=== PATIENT | female | born 1995 | race Hispanic/Latino ===

== ENCOUNTER 2017-08-03 19:43 | Emergency (ER) | payer OTHER ==
[2017-08-03] MEDS ORDERED: Sodium Chloride 0.9% 1,000 ML IV STA (21:38)
[2017-08-03] MEDS ORDERED: Famotidine 20mg/50ml 20 MG/50 ML BAG IVPB STA (21:51)
[2017-08-03] MEDS ORDERED: Famotidine 20mg/50ml 20 MG/50 ML BAG IVPB ONE (22:04)
[2017-08-03 22:30] LABS: SQUAMOUS EPITHIAL 12 /hpf (0-5); URINE BACTERIA RARE (<OCC); URINE BILIRUBIN NEGATIVE (NEGATIVE); URINE BLOOD NEGATIVE (NEGATIVE); URINE CLARITY CLOUDY (Clear); URINE COLOR AMBER (YELLOW); URINE GLUCOSE (UA) NEG (Normal); URINE LEUKOCYTE ESTERASE NEG Leu/uL (Negative); URINE PROTEIN 100 mg/dL (NEGATIVE); URINE UROBILINOGEN 0.2-1.0 mg/dL (0.2-1.0)
[2017-08-03 22:36] LABS: BASO % 0.2 % (0.0-2.0); EOS % 0.1 % (0.0-4.0); LYMPH % 16.3 % (20.0-40.0); MEAN CELL VOLUME 90.2 fl (81.0-99.0); MEAN CORPUSCULAR HEMOGLOBIN 30.9 pg (27.0-31.0); MEAN CORPUSCULAR HGB CONC 34.2 g/dL (33.0-37.0); MEAN PLATELET VOLUME 8.4 fl (7.2-11.7); MONO # 0.4 K/uL (0.0-0.8); MONO % 5.9 % (0.0-10.0); NEUT # 4.8 K/uL (1.8-7.0); NEUT % 77.5 % (50.0-75.0); NRBC % 0.1 % (0.0-0.0); RBC 4.52 Mil/uL (3.80-5.20); RED CELL DISTRIBUTION WIDTH 13.2 % (11.5-14.5); WHITE BLOOD COUNT 6.2 K/uL (4.8-10.8)
[2017-08-03 22:42] LABS: ALB/GLOB RATIO 1.2 (1.0-2.1); ALBUMIN 3.8 g/dL (3.5-5.0); ALT/SGPT 24 U/L (9-52); AST/SGOT 25 U/L (14-36); BLOOD UREA NITROGEN 7 mg/dl (7-17); GFR AFRICAN-AMERICAN > 60; GFR NON-AFRICAN AMERICAN > 60; LIPASE 41 U/L (23-300)
[2017-08-03 22:46] LABS: VENOUS BLOOD GAS BASE EXCESS 0.1 mmol/L (0.0-2.0); VENOUS BLOOD GAS PCO2 39 mmHg (40-60); VENOUS BLOOD GAS PO2 30 mm/Hg (30-55); VENOUS BLOOD PH 7.41 (7.32-7.43)
[2017-08-03] MEDS ORDERED: Potassium Chloride 20 mEq/15 ml LIQ UD PO ONE (22:50)
[2017-08-03] MEDS ORDERED: Potassium Chloride 20 mEq 100 ML ONE (23:58)
[2017-08-04] MEDS: Potassium Chloride 20 mEq 100 ML IVPB SCH ×2 (00:01→02:06)
--- NOTE | 2017-08-04 00:14 | ED PDOC ---
HPI: Abdomen Time Seen by Provider: 08/03/17 21:27 Chief Complaint (Nursing): Fever Chief Complaint (Provider): Fever, Abdominal Pain History Per: Patient History/Exam Limitations: no limitations Onset/Duration Of Symptoms: Days (x3) Outside of [place] travel?: No Current Symptoms Are (Timing): Still Present Additional Complaint(s): 22 y/o female with no significant pmhx who presents to the ED for evaluation of fever and multiple episodes of watery diarrhea x3 days. Patient says she recently moved here from [place] and went out for food and drinks Thursday night, and states her symptoms began on Thursday morning. Patient reports intermittent crampy abdominal pain onset today associated with nausea, but denies vomiting, recent travel, or sick contacts. Patient reports taking Immodium for her symptoms. She states she went to today and was given Cipro and Bentyl, but her symptoms continued prompting her to present to the ED for evaluation. Past Medical History Reviewed: Historical Data, Nursing Documentation, Vital Signs Vital Signs: Last Vital Signs Temp 102.1 F H 08/03/17 21:55 Pulse 112 H 08/03/17 21:00 Resp 16 08/03/17 21:00 BP 114/73 08/03/17 21:00 Pulse Ox 97 08/03/17 21:00 - Medical History PMH: No Chronic Diseases - Surgical History Surgical History: No Surg Hx - Family History Family History: States: Unknown Family Hx - Social History Current smoker - smoking cessation education provided: No Alcohol: None Drugs: Denies - Allergies Allergies/Adverse Reactions: Allergies Allergy/AdvReac Type Severity Reaction Status Date / Time No Known Allergies Allergy Verified 08/03/17 20:57 Review of Systems ROS Statement: Except As Marked, All Systems Reviewed And Found Negative Constitutional: Positive for: Fever Gastrointestinal: Positive for: Nausea, Abdominal Pain, Diarrhea. Negative for : Vomiting Physical Exam - Reviewed Nursing Documentation Reviewed: Yes Vital Signs Reviewed: Yes - Physical Exam Comments: GENERAL APPEARANCE: Patient is awake, alert, oriented x 3, in no acute distress. SKIN: Warm, dry; (-) cyanosis. EYES: (-) conjunctival pallor, (-) scleral icterus. ENMT: Mucous membranes dry. NECK: (-) tenderness, (-) stiffness, (-) lymphadenopathy. CHEST AND RESPIRATORY: (-) rales, (-) rhonchi, (-) wheezes; breath sounds equal bilaterally. HEART AND CARDIOVASCULAR: (-) irregularity; (-) murmur, (-) gallop. ABDOMEN AND GI: (-) distention. Bowel sounds active; (-) tenderness. (-) guarding, (-) rebound, (-) palpable masses, (-) CVA tenderness. EXTREMITIES: (-) deformity, (-) edema, (+) distal pulses. NEURO AND PSYCH: Mental status as above; (-) focal findings. - Laboratory Results Result Diagrams: 08/03/17 22:07 08/03/17 22:07 - ECG O2 Sat by Pulse Oximetry: 97 (RA) Disposition - Disposition
[2017-08-04] MEDS ORDERED: Sodium Chloride 0.9% 1,000 ML IV STA (00:20)
--- NOTE | 2017-08-04 00:26 | ED PDOC ---
HPI: Abdomen Time Seen by Provider: 08/03/17 21:27 Chief Complaint (Nursing): Fever Chief Complaint (Provider): Fever, Abdominal Pain History Per: Patient History/Exam Limitations: no limitations Onset/Duration Of Symptoms: Days (x3) Current Symptoms Are (Timing): Still Present Additional Complaint(s): 22 y/o female with no significant pmhx who presents to the ED for evaluation of fever and multiple episodes of watery diarrhea x3 days. Patient says she recently moved here from [place] and went out for food and drinks Thursday night, and states her symptoms began on Thursday morning. Patient reports intermittent crampy abdominal pain onset today associated with nausea, but denies vomiting, recent travel outside of , or sick contacts. Patient reports taking Immodium for her symptoms. She states she went to today and was given Cipro and Bentyl , but her symptoms continued prompting her to present to the ED for evaluation. Past Medical History Reviewed: Historical Data, Nursing Documentation, Vital Signs Vital Signs: Last Vital Signs Temp 97.6 F 08/04/17 01:57 Pulse 64 08/04/17 01:57 Resp 18 08/04/17 01:57 BP 112/62 08/04/17 01:57 Pulse Ox 100 08/04/17 01:57 - Medical History PMH: No Chronic Diseases - Surgical History Surgical History: No Surg Hx - Family History Family History: States: Unknown Family Hx - Social History Current smoker - smoking cessation education provided: No Alcohol: None Drugs: Denies - Home Medications Home Medications: Ambulatory Orders Medication Instructions Recorded Ondansetron ODT [Zofran ODT] 4 mg PO DAILY PRN #20 odt 08/04/17 - Allergies Allergies/Adverse Reactions: Allergies Allergy/AdvReac Type Severity Reaction Status Date / Time No Known Allergies Allergy Verified 08/03/17 20:57 Review of Systems ROS Statement: Except As Marked, All Systems Reviewed And Found Negative Constitutional: Positive for: Fever Gastrointestinal: Positive for: Nausea, Abdominal Pain, Diarrhea. Negative for : Vomiting Physical Exam - Reviewed Nursing Documentation Reviewed: Yes Vital Signs Reviewed: Yes - Physical Exam Comments: GENERAL APPEARANCE: Patient is awake, alert, oriented x 3, in no acute distress. SKIN: Warm, dry; (-) cyanosis. EYES: (-) conjunctival pallor, (-) scleral icterus. ENMT: Mucous membranes dry. NECK: (-) tenderness, (-) stiffness, (-) signs of meningismus, (-) lymphadenopathy. CHEST AND RESPIRATORY: (-) rales, (-) rhonchi, (-) wheezes; breath sounds equal bilaterally. HEART AND CARDIOVASCULAR: (-) irregularity; (-) murmur, (-) gallop. ABDOMEN AND GI: (-) distention. Bowel sounds active; (+) mild diffuse abdominal tenderness, (-) guarding, (-) rebound, (-) palpable masses, (-) CVA tenderness. EXTREMITIES: (-) deformity, (-) edema, (+) distal pulses. NEURO AND PSYCH: Mental status as above; (-) focal findings. - Laboratory Results Result Diagrams: 08/03/17 22:07 08/03/17 22:07 - ECG O2 Sat by Pulse Oximetry: 97 (RA) Pulse Ox Interpretation: Normal Medical Decision Making Medical Decision Making: Impression: Gastroenteritis, consider colitis --VBG shock panel --EKG --CMP --Lipase --ED urine --CBC --CXR --Potassium chloride --1LNS --Pepcid 20mg IVP --Toradol 30mg IVP --Zofran 4mg IVP --Tylenol 650mg PO --Blood culture --Stool culture --IV insertion --Urinalysis --Reevaluation Labs reviewed. CBC WNL, Lactic acid WNL, HCG negative, Potassium 3.1. UA shows positive ketones. On reevaluation, patient reports feeling better. Patient is a febrile and has no nausea or pain. Patient had 1 episode of watery diarrhea in ER and stool sample was sent for culture and C diff. Repeat abdominal exam: (+) soft, (-) tenderness, (-) guarding. Second NS bolus ordered. Given KCl 40 meq PO and IV 2 riders ordered. EKG : NSR at 67 bpm, (-) acute ST changes, as read by FRAN. VS T 97.6 P 64 BP 112/62 O2sat 100%RA. Patient unable to tolerate IV KCl, given another dose of KCl PO. Patient states that she feels much better and feels comfortable going home. Dx of dehydration, hypokalemia and gastroenteritis d/w the patient, advised to increase intake of fluids - water, gatorade, BRAT diet. Advised to follow up with primary care physician in 1-2 days without fail. Advised to take medication as prescribed and to continue taking cipro and bentyl as prescribed from the urgent care. Return to the emergency room at any time for any new or worsening symptoms. Patient states she fully agrees with and understands discharge instructions. States that she agrees with the plan and disposition. Verbalized and repeated discharge instructions and plan. I have given the patient opportunity to ask any additional questions. Scribe Attestation: Documented by Lenny Curtis, acting as a scribe for Diana Alamo PA-C. Provider Scribe Attestation: All medical record entries made by the Scribe were at my direction and personally dictated by me. I have reviewed the chart and agree that the record accurately reflects my personal performance of the history, physical exam, medical decision making, and the department course for this patient. I have also personally directed, reviewed, and agree with the discharge instructions and disposition. Disposition - Clinical Impression Clinical Impression: Fever, Gastroenteritis, Dehydration, Hypokalemia - Patient ED Disposition Is Patient to be Admitted: No Counseled Patient/Family Regarding: Studies Performed, Diagnosis, Need For Followup, Rx Given - Disposition Disposition: Routine/Home Disposition Time: 22:26 Condition: IMPROVED Additional Instructions: Thank you for letting us take care of you today. You were treated for fever, gastroenteritis, dehydration, hypokalemia. The emergency medical care you received today was directed at your acute symptoms. Continue taking bentyl and cipro as prescribed. BRAT diet, drink plenty of fluids. If you were prescribed any medication, please fill it and take as directed. It may take several days for your symptoms to resolve. Return to the Emergency Department if your symptoms worsen, do not improve, or if you have any other problems. Please contact your doctor in 2 days for re-evaluation and follow up / or call one of the physicians/clinics you have been referred to that are listed on the Patient Visit Information form that is included in your discharge packet. Bring any paperwork you were given at discharge with you along with any medications you are taking to your follow up visit. Our treatment cannot replace ongoing medical care by a primary care provider (PCP) outside of the emergency department. Thank you for allowing the [facility] team to be part of your care today. Prescriptions: Ondansetron ODT [Zofran ODT] 4 mg PO DAILY PRN #20 odt PRN Reason: Nausea/Vomiting Instructions: Dehydration, Adult (DC), Hypokalemia (DC), Gastroenteritis (ED) Forms: [employer] ([employer]), [facility] ED School/Work Excuse
[2017-08-04] MEDS ORDERED: Potassium Chloride 20 mEq/15 ml LIQ UD PO ONE (01:26)
[2017-08-04 02:00] VITALS: BP 112/62; PULSE 64; RESP 18; TEMP 97.6
[2017-08-04 02:37] VITALS: O2SAT 97
--- NOTE | 2017-08-04 08:48 | RAD ---
HISTORY: fever COMPARISON: No prior. TECHNIQUE: Chest PA and lateral FINDINGS: LUNGS: No active pulmonary disease. PLEURA: No significant pleural effusion identified. No pneumothorax apparent. CARDIOVASCULAR: Normal. OSSEOUS STRUCTURES: No significant abnormalities. VISUALIZED UPPER ABDOMEN: Normal. OTHER FINDINGS: None. IMPRESSION: No active disease.
--- NOTE | 2017-08-04 10:24 | CARD ---
APPROVED REPORT EKG Measurement Heart [id number] <Conclusion> Normal sinus rhythm with sinus arrhythmia Normal ECG
== END 2017-08-04 02:15 | disposition home or self-care (01) ==
LOC: H.ER 19:43
DX: R50.9 Fever, unspecified (principal); K52.9 Noninfective gastroenteritis and colitis, unspecified; E86.0 Dehydration; E87.6 Hypokalemia
CPT/HCPCS: 71046; 80053; 81003; 81025; 82803; 83690; 85025; 87040; 87045; 87230; 93005; 96374; 96375; 99283; J1885; J2405; J3480; J7030